=== PATIENT | female | born 1960 ===

== ENCOUNTER 2018-08-19 17:53 | Emergency (ER) | payer MEDICAID, OTHER ==
[2018-08-19 18:15] VITALS: BMI 24.7
[2018-08-19] MEDS ORDERED: DiphenhydrAMINE 50 mg/ml Inj IM STA (18:16)
--- NOTE | 2018-08-19 18:16 | ED PDOC ---
Arrival/HPI - General Historian: Patient - History of Present Illness Narrative History of Present Illness (Text): 08/19/18 18:12 58 y/o female, no significant pmh, nkda, post menopausal, c/o facial itching and swelling x 1 week with no change in soap/clothing/cosmetic product. Pt. stated that she had rt. sided facial cheek swelling about 1 week ago, resolved and now started to swelling on the left side of the cheek, admits itching/warm/swelling, painful movement of the eye, no headache/tongue swelling/difficulty swallowing, no other medical or psychological complaints. Past Medical History - Provider Review Nursing Documentation Reviewed: Yes Family/Social History - Physician Review Nursing Documentation Reviewed: Yes Family/Social History: Unknown Family HX Allergies/Home Meds Allergies/Adverse Reactions: Allergies No Known Allergies Allergy (Verified 08/19/18 18:16) Review of Systems - Review of Systems Constitutional: absent: Fatigue, Fevers Eyes: absent: Vision Changes ENT: absent: Hearing Changes Respiratory: absent: SOB, Cough Cardiovascular: absent: Chest Pain Gastrointestinal: absent: Abdominal Pain, Diarrhea, Nausea, Vomiting Musculoskeletal: absent: Arthralgias, Back Pain Skin: Rash, Pruritis, Skin Lesions. absent: Laceration, Abscess, Ulcer, Cellulitis Neurological: absent: Headache, Dizziness Psychiatric: absent: Anxiety, Depression, Suicidal Ideation Physical Exam - Systems Exam Head: Present: Atraumatic, Normocephalic Pupils: Present: PERRL Extroacular Muscles: Present: EOMI Conjunctiva: Present: Normal Mouth: Present: Moist Mucous Membranes Neck: Present: Normal Range of Motion Respiratory/Chest: Present: Clear to Auscultation, Good Air Exchange. No: Respiratory Distress, Accessory Muscle Use Cardiovascular: Present: Regular Rate and Rhythm, Normal S1, S2. No: Murmurs Abdomen: No: Tenderness, Distention, Peritoneal Signs Back: Present: Normal Inspection Upper Extremity: Present: Normal Inspection. No: Cyanosis, Edema Lower Extremity: Present: Normal Inspection. No: Edema Neurological: Present: GCS=15, CN II-XII Intact, Speech Normal Skin: Present: Warm, Dry, Rashes (Lt. sided facial cheek and perioral/chin region mild swelling and skin lichenification, no streaking/ulcers, no periorbital swelling, no painful movement of the eye or entractment. ), Normal Color Psychiatric: Present: Alert, Oriented x 3, Normal Insight, Normal Concentration Medical Decision Making ED Course and Treatment: 08/19/18 18:15 -Benadryl/decadron/pepcid -observe and reassess 08/19/18 19:37 -Itching resolved, swelling decreased, feeling much better, request to be discharged home. -Discharge home with benadryl, topical steroid cream, avoid rubbing or touching the face, follow up with your own pmd and traffic i manager within 2 days, return to the ER for any new or worsening signs or symptoms. - PA / REMEDIAL READING TEACHER / Resident Statement MD/ has reviewed & agrees with the documentation as recorded. Disposition/Present on Arrival - Present on Arrival Any Indicators Present on Arrival: No History of DVT/PE: No History of Uncontrolled Diabetes: No Urinary Catheter: No History of Decub. Ulcer: No - Disposition Have Diagnosis and Disposition been Completed?: Yes Diagnosis: Dermatitis Disposition: HOME/ ROUTINE Disposition Time: 19:38 Patient Plan: Discharge Condition: IMPROVED Additional Instructions: -Discharge home with benadryl, topical steroid cream, avoid rubbing or touching the face, avoid facial cosmetic products, follow up with your own pmd and traffic i manager within 2 days, return to the ER for any new or worsening signs or symptoms. Prescriptions: DiphenhydrAMINE [Benadryl] 50 mg PO QID PRN #20 cap PRN Reason: Other Triamcinolone 0.025 % [Triamcinolone 0.025 % Cream] 1 appl TOP BID #30 g Referrals: Javi Jalloh MD [Staff Provider] - Follow up with primary Forms: WORK NOTE
[2018-08-19] MEDS ORDERED: DiphenhydrAMINE 50 mg/ml Inj ONE (18:55)
[2018-08-19 19:15] VITALS: PULSE 88; O2SAT 99
[2018-08-19 19:54] VITALS: BP 104/75; RESP 14; TEMP 98.8
== END 2018-08-19 19:56 | disposition home or self-care (01) ==
LOC: ED 17:53
DX: L30.9 Dermatitis, unspecified (principal)
CPT/HCPCS: 96372; 99283; J1100; J1200

== ENCOUNTER 2018-12-09 18:32 | Emergency (ER) | payer MEDICAID ==
[2018-12-09 18:33] VITALS: BMI 24.7
[2018-12-09 18:49] VITALS: RESP 18; TEMP 98.5; O2SAT 98
--- NOTE | 2018-12-09 19:21 | ED PDOC ---
Arrival/HPI - General Chief Complaint: Allergic Reaction Time Seen by Provider: 12/09/18 18:37 Historian: Patient - History of Present Illness Narrative History of Present Illness (Text): 12/09/18 19:22 58-year-old female presents today with a one-week history of swelling to the cheeks bilaterally. Patient states this happened to her back and July and she was given an injection in the hospital which relieved the symptoms. Patient is requesting another injection for the facial swelling. She denies difficulty breathing or swallowing. She denies tongue swelling. She denies chest pain or shortness of breath. Patient denies new soaps lotions detergents or perfumes. She denies any new medications. Patient states she has been taking Benadryl at home but does not feel that the swelling is resolving completely. Past Medical History - Provider Review Nursing Documentation Reviewed: Yes - Travel History Have you recently traveled outside [place] w/in the past 3 mons?: No - Infectious Disease Hx of Infectious Diseases: None - Reproductive Menopause: Yes - Cardiac Hx Cardiac Disorders: No - Pulmonary Hx Respiratory Disorders: No - Psychiatric Hx Substance Use: No - Surgical History Other/Comment: breast reduction - Anesthesia Hx Anesthesia: Yes Hx Anesthesia Reactions: No Family/Social History - Physician Review Nursing Documentation Reviewed: Yes Family/Social History: Unknown Family HX Smoking Status: Never Smoked Hx Alcohol Use: No Hx Substance Use: No Allergies/Home Meds Allergies/Adverse Reactions: Allergies NSAIDS (Non-Steroidal Anti-Inflamma Allergy (Verified 12/09/18 18:50) RASH asa Allergy (Uncoded 12/09/18 18:50) RASH Home Medications: Home Meds Medication Instructions Recorded Confirmed Conjugated Estrogens [Premarin] 0.625 mg PO HS 12/09/18 12/09/18 Progesterone, Micronized 100 mg PO DAILY 12/09/18 12/09/18 [Progesterone] Review of Systems - Review of Systems Constitutional: absent: Fatigue, Fevers Eyes: absent: Vision Changes, Photophobia, Eye Pain ENT: absent: Sore Throat, Rhinorrhea, Sinus Congestion Respiratory: absent: SOB, Cough Cardiovascular: absent: Chest Pain, Palpitations Gastrointestinal: absent: Abdominal Pain, Vomiting Skin: Rash, Pruritis Neurological: absent: Headache, Dizziness Psychiatric: absent: Anxiety, Depression Physical Exam Vital Signs Reviewed: Yes Vital Signs Temp Pulse Resp BP Pulse Ox 12/09/18 18:43 98.5 F 90 18 112/73 98 Temperature: Afebrile Blood Pressure: Normal Pulse: Regular Respiratory Rate: Normal Appearance: Positive for: Well-Appearing, Non-Toxic, Comfortable Pain Distress: None Mental Status: Positive for: Alert and Oriented X 3 - Systems Exam Head: Present: Atraumatic, Swelling (minimal swelling noted to the cheeks; no erythema; no tenderness. no warmth. ) Pupils: Present: PERRL Extroacular Muscles: Present: EOMI Conjunctiva: Present: Normal Ears: Present: Normal, NORMAL TM Mouth: Present: Moist Mucous Membranes, Normal Lips, Normal Tounge, Normal Teeth. No: Drooling, Trismus Pharnyx: Present: Normal. No: ERYTHEMA, EXUDATE, TONSILS ENLARGED, Peritonsilar Swelling, Uvular Deviation, Muffled/Hoarse Voice, Strider, Soft Palate/Uvular Edema Nose (External): Present: Atraumatic Nose (Internal): Present: Normal Inspection Neck: Present: Normal Range of Motion Respiratory/Chest: Present: Clear to Auscultation, Good Air Exchange. No: Respiratory Distress, Accessory Muscle Use Cardiovascular: Present: Regular Rate and Rhythm Upper Extremity: Present: Normal ROM Lower Extremity: Present: Normal ROM Neurological: Present: GCS=15, Speech Normal Skin: Present: Warm, Dry, Normal Color. No: Rashes Psychiatric: Present: Alert, Oriented x 3 Medical Decision Making ED Course and Treatment: 12/09/18 19:24 Patient is nontoxic well-appearing in no distress with stable vital signs no angioedema. minimal swelling noted to the cheeks/ no erythema. Lungs are clear to auscultation bilaterally there is no wheezing noted. The airway is patent. Patient is requesting "the injection that she had in July when she was in the emergency room patient states that she does not want to take any pills." Decadron 10 mg IM I advised taking Benadryl every 6 hours as needed for itch. Advised patient to follow up with primary care physician within the next 2 days and return if symptoms worsen persist or if new symptoms develop. Patient was advised to follow-up with a toxicologist within the next 2 days Patient verbalizes understanding of discharge instructions and need for immediate followup. All aspects of this case were discussed the attending of record. Impression: swelling of face Benadryl every 6 hours as needed for swelling/itching Pepcid 1 tablet daily Follow-up with a toxicologist within the next 2 days Follow-up the primary care physician within the next 2 days Return immediately if symptoms worsen persist or if new concerning symptoms develop Disposition/Present on Arrival - Present on Arrival Any Indicators Present on Arrival: No History of DVT/PE: No History of Uncontrolled Diabetes: No Urinary Catheter: No History of Decub. Ulcer: No History Surgical Site Infection Following: None - Disposition Have Diagnosis and Disposition been Completed?: Yes Diagnosis: Swelling of face Disposition: HOME/ ROUTINE Disposition Time: 19:17 Patient Plan: Discharge Patient Problems: Current Active Problems Problem Status Onset Swelling of face Acute Condition: GOOD Additional Instructions: Benadryl every 6 hours as needed for swelling/itching Pepcid 1 tablet daily Follow-up with a toxicologist within the next 2 days Follow-up the primary care physician within the next 2 days Return immediately if symptoms worsen persist or if new concerning symptoms develop Prescriptions: DiphenhydrAMINE [Benadryl] 25 mg PO Q6H #20 cap Famotidine [Pepcid] 20 mg PO DAILY #30 tab Referrals: FAMILY PROVIDER,NO [Primary Care Provider] - Follow up with primary Javi Jalloh MD [Staff Provider] - Follow up with primary Juli France MD [Medical Doctor] - Follow up with primary [facility] [Outside] - Follow up with primary
[2018-12-09 20:16] VITALS: BP 114/71; PULSE 88
== END 2018-12-09 20:56 | disposition home or self-care (01) ==
LOC: ED 18:32
DX: R22.0 Localized swelling, mass and lump, head (principal)
CPT/HCPCS: 96372; 99283; J1100

== ENCOUNTER 2018-12-13 12:56 | Emergency (ER) | payer MEDICAID ==
[2018-12-13 12:57] VITALS: BMI 24.7
[2018-12-13 13:26] VITALS: PULSE 76
--- NOTE | 2018-12-13 13:26 | ED PDOC ---
Arrival/HPI - General Historian: Patient - History of Present Illness Narrative History of Present Illness (Text): 12/13/18 13:25 Patient is a 58yo F with history of facial swelling presenting to the ED for facial swelling. Per chart review, patient was seen in the ED 4 days prior when she was given decadron and discharged with prescription for benadryl and instructed to follow up with appointment coordinator and PMD. She says the swelling began 1 week prior on the R cheek. Patient reports worsening since then, with swelling now on the left side of her face. She reports associated warmth. She denies improvement after the decadron injection. She tried using cold packs on the face with no relief. She denies headache, blurry vision, difficulty breathing, chest pain, or itching to the area. She denies use of new soaps/detergents/creams/perfumes. She denies recent use of cosmetic injectable products. She denies any known food allergens. She says she had a blood allergy test last year that came back negative. Patient has appointment for PMD at [facility] on 12/17/18. Time/Duration: 1 week Symptom Onset: Sudden Symptom Course: Worsening <Storm Lai - Last Filed: 12/13/18 15:42> <Mark Vela - Last Filed: 12/13/18 18:48> - General Chief Complaint: Abnormal Skin Integrity Time Seen by Provider: 12/13/18 13:16 Past Medical History - Infectious Disease Hx of Infectious Diseases: None - Cardiac Hx Cardiac Disorders: No - Pulmonary Hx Respiratory Disorders: No - Psychiatric Hx Substance Use: No - Surgical History Other/Comment: breast reduction - Anesthesia Hx Anesthesia: Yes Hx Anesthesia Reactions: No <Storm Lai - Last Filed: 12/13/18 15:42> Family/Social History Family/Social History: No Known Family HX Smoking Status: Never Smoked Hx Alcohol Use: No Hx Substance Use: No <Storm Lai - Last Filed: 12/13/18 15:42> Allergies/Home Meds <Storm Lai - Last Filed: 12/13/18 15:42> <Mark Vela - Last Filed: 12/13/18 18:48> Allergies/Adverse Reactions: Allergies NSAIDS (Non-Steroidal Anti-Inflamma Allergy (Verified 12/09/18 18:50) RASH asa Allergy (Uncoded 12/09/18 18:50) RASH Home Medications: Home Meds Medication Instructions Recorded Confirmed Conjugated Estrogens [Premarin] 0.625 mg PO HS 12/09/18 12/09/18 Progesterone, Micronized 100 mg PO DAILY 12/09/18 12/09/18 [Progesterone] Review of Systems - Review of Systems Constitutional: Normal. absent: Fevers Eyes: Normal. absent: Vision Changes ENT: Normal Respiratory: Normal. absent: SOB Cardiovascular: Normal. absent: Chest Pain Gastrointestinal: Normal Genitourinary Female: Normal Musculoskeletal: Normal Skin: Other (swelling). absent: Rash, Pruritis Neurological: Normal Endocrine: Normal Hemo/Lymphatic: Normal Psychiatric: Normal <Storm Lai - Last Filed: 12/13/18 15:42> Physical Exam - Systems Exam Head: Present: Atraumatic, Normocephalic Pupils: Present: PERRL Extroacular Muscles: Present: EOMI Conjunctiva: Present: Normal Mouth: Present: Moist Mucous Membranes Pharnyx: Present: Normal. No: ERYTHEMA, TONSILS ENLARGED, Peritonsilar Swelling, Uvular Deviation, Muffled/Hoarse Voice Neck: Present: Normal Range of Motion Respiratory/Chest: Present: Clear to Auscultation, Good Air Exchange. No: Respiratory Distress, Accessory Muscle Use Cardiovascular: Present: Regular Rate and Rhythm, Normal S1, S2. No: Murmurs, Rub, Gallop Abdomen: Present: Tenderness, Normal Bowel Sounds. No: Distention, Peritoneal Signs Upper Extremity: Present: Normal Inspection. No: Cyanosis, Edema Lower Extremity: Present: Normal Inspection. No: Edema Neurological: Present: GCS=15, CN II-XII Intact, Speech Normal Skin: Present: Warm, Induration, Other (mild edema, erythema, and warmth in the b/l malar regions and L angle of mouth.). No: Dry, Rashes, Abscess Psychiatric: Present: Alert, Oriented x 3, Normal Insight, Normal Concentration <Storm Lai - Last Filed: 12/13/18 15:42> Vital Signs Temp Pulse Resp BP Pulse Ox 12/13/18 13:19 97.8 F 76 16 101/65 96 <Mark Vela - Last Filed: 12/13/18 18:48> Medical Decision Making ED Course and Treatment: 12/13/18 13:48 IV benadryl and decadron, reassess. 12/13/18 15:10 Patient reports improvement in left sided facial warmth and swelling. She was given instructions to follow up with her PMD at her scheduled appointment on 12/17. She was advised to return to the emergency department if symptoms worsen, and if she had difficulty breathing and/or throat closure. She was given allergy and dermatology referrals. Patient understood instructions and agreed. <Storm Lai - Last Filed: 12/13/18 15:42> - Medication Orders Current Medication Orders: Discontinued Medications Dexamethasone (Decadron Inj) 10 mg IVP STAT STA Stop: 12/13/18 14:14 Last Admin: 12/13/18 14:35 Dose: 10 mg IVP Administration Document 12/13/18 14:35 EQ (Rec: 12/13/18 14:35 [facility] Charges for Administration # of IVP Administrations 1 Diphenhydramine HCl (Benadryl) 25 mg IVP STAT STA Stop: 12/13/18 13:40 Last Admin: 12/13/18 14:35 Dose: 25 mg IVP Administration Document 12/13/18 14:35 EQ (Rec: 12/13/18 14:35 [facility] Charges for Administration # of IVP Administrations 1 <aMrk Vela - Last Filed: 12/13/18 18:48> - PA / UNDER CUTTER / Resident Statement / has reviewed & agrees with the documentation as recorded. (58 yr old female w/ recent visit and dx w/ mild allergic rx p/w chief complaint of facial rash. She notes she was given decadron and then noted a rash appeared on her face, bi malar. Non lupus like in appearnce and no TEN or SJS in apperance. No oral involvement. Likely mild allergy rash: instructed pt to take benadryl for rash and pt notes that she had taken benadryl in the past for exact same similiar occurence with improvement. No signs of airway compromise on exam, pt in NAD.) / has examined the patient and agrees with the treatment plan. <Mark Vela - Last Filed: 12/13/18 18:48> Disposition/Present on Arrival - Present on Arrival Any Indicators Present on Arrival: No History of DVT/PE: No History of Uncontrolled Diabetes: No Urinary Catheter: No History Surgical Site Infection Following: None - Disposition Have Diagnosis and Disposition been Completed?: Yes Disposition Time: 15:22 <ShalajoannaClairejimmyjuan - Last Filed: 12/13/18 15:42> <Mark Vela - Last Filed: 12/13/18 18:48> - Disposition Diagnosis: Facial swelling Disposition: HOME/ ROUTINE Condition: IMPROVED Additional Instructions: Please follow up with your primary care physician at your scheduled appointment on December 17. Please follow up with an vending technician or primary care doctor for patch testing. Please follow up with a appointment coordinator. If symptoms worsen and you have difficulty breathing, return to the emergency department. Referrals: PCP,NO [Primary Care Provider] - Follow up with primary [facility] [Provider Group] - Follow up with primary Emil Galicia MD [Medical Doctor] - Follow up with primary Javi Jalloh MD [Staff Provider] - Follow up with primary Forms: [employer] (Slovenian)
[2018-12-13] MEDS ORDERED: DiphenhydrAMINE 50 mg/ml Inj IVP STA (13:39)
[2018-12-13 15:48] VITALS: BP 104/70; RESP 18; TEMP 98; O2SAT 98
== END 2018-12-13 15:50 | disposition home or self-care (01) ==
LOC: ED 12:56
DX: R22.0 Localized swelling, mass and lump, head (principal)
CPT/HCPCS: 96374; 96375; 99283; J1100; J1200